=== PATIENT | male | born 1970 | race Caucasian/White ===

== ENCOUNTER 2019-11-12 06:10 | Day surgery (SDC) | payer OTHER | END 2019-11-12 18:00 | disposition home or self-care (01) | LOC: CIR.AMB 06:10 | PROVIDERS: ATTEND Specialist | DX: K42.9 Umbilical hernia without obstruction or gangrene (principal) ==

== ENCOUNTER 2022-08-06 10:00 | Emergency (ER) | payer OTHER ==
[~2022-08-06] VITALS: Ht 182.9 cm; Wt 93.0 kg
== END 2022-08-06 15:50 | disposition home or self-care (01) ==
LOC: ER 10:00
DX: R30.0 Dysuria (principal); R10.9 Unspecified abdominal pain

== ENCOUNTER 2024-07-31 17:55 | Emergency (ER) | payer OTHER ==
[~2024-07-31] VITALS: Ht 182.9 cm; Wt 95.3 kg
== END 2024-07-31 23:11 | disposition home or self-care (01) ==
LOC: ER 17:56
DX: I10 Essential (primary) hypertension (principal)